=== PATIENT | male | born 1940 | race Caucasian/White ===

== ENCOUNTER 2023-09-21 14:05 | Outpatient (CLI) | payer MEDICARE ==
[2023-09-21 15:05] LABS: EOSINOPHILS # (AUTO) 0.1 X10'3 (0-0.9)
[2023-09-21 15:07] LABS: BASOPHILS % (AUTO) 0.4 % (0-1); EOSINOPHILS % (AUTO) 1.9 % (0-6); HEMATOCRIT 47.4 % (42.0-52.0); HEMOGLOBIN 15.9 g/dl (14.0-17.9); LYMPHOCYTES # (AUTO) 0.8 X10'3 (1.1-4.8); LYMPHOCYTES % (AUTO) 12.8 % (21-51); MEAN CORPUSCULAR HEMOGLOBIN 31.9 PG (27.0-31.0); MEAN CORPUSCULAR HGB CONC 33.5 g/dL (33.0-36.5); MEAN CORPUSCULAR VOLUME 95.2 FL (78-98); MEAN PLATELET VOLUME 8.9 FL (7.4-10.4); MONOCYTES # (AUTO) 0.6 X10'3 (0-0.9); MONOCYTES % (AUTO) 9.9 % (2-12); NEUTROPHILS # (AUTO) 4.4 X10'3 (1.8-7.7); PLATELET COUNT 176 X10'3 (140-440); RED BLOOD COUNT 4.98 X10'6 (4.70-6.10); RED CELL DISTRIBUTION WIDTH 14.1 % (11.5-14.5); WHITE BLOOD COUNT 5.9 X10'3 (4.5-11.0)
[2023-09-21 15:23] LABS: APTT 37 SECONDS (22-32); INR 2.1 INR; PROTHROMBIN TIME 21.9 SECONDS (9.0-12.0)
[2023-09-21 15:24] LABS: ALBUMIN 3.7 G/DL (3.4-5.0); ANION GAP 8 (8-16); BLOOD UREA NITROGEN 24 MG/DL (7-18); BUN/CREATININE RATIO 21.4 (10.0-20.0); CALCIUM 9.3 MG/DL (8.5-10.1); CHLORIDE 104 MMOL/L (99-107); CHOL/HDL RATIO 2.7 (0.00-4.99); CHOLESTEROL 126 MG/DL (0-200); CREATININE 1.12 MG/DL (0.60-1.10); GLUCOSE 97 MG/DL (70-104); HDL CHOLESTEROL 46 MG/DL (35-60); LDL CHOLESTEROL 62 MG/DL (50-100); POTASSIUM 4.7 MMOL/L (3.5-5.1); SODIUM 139 MMOL/L (135-145); TRIGLYCERIDES 98 MG/DL (20-135); eGFR 63 ML/MIN
== END 2023-09-21 23:59 | disposition home or self-care (01) ==
LOC: LAB 14:05
PROVIDERS: ATTEND Internal Medicine Interventional Cardiology
DX: Z01.812 Encounter for preprocedural laboratory examination (principal); E78.5 Hyperlipidemia, unspecified; I10 Essential (primary) hypertension; Z79.01 Long term (current) use of anticoagulants
CPT/HCPCS: 80048; 80061; 85025; 85610; 85730

== ENCOUNTER 2023-09-24 09:59 | Day surgery (SDC) | payer MEDICARE ==
[2023-09-24] VITALS (11 sets, daily range): BP systolic 91–130; BP diastolic 50–81; PULSE 61–98; RESP 13–18; TEMP 97.7; O2SAT 95–99
[~2023-09-24] VITALS: Ht 177.8 cm; Wt 87.8 kg
[2023-09-24] MEDS ORDERED: LORazepam 0.5 MG tablet PO PRN (10:25)
[2023-09-24] MEDS ORDERED: diphenhydrAMINE 25mg capsule PO PRN (10:25)
[2023-09-24] MEDS ORDERED: normal saline 1,000 ML IV SCH (10:25)
[2023-09-24] MEDS ORDERED: WARF10TA45 PO (11:38)
[2023-09-24] MEDS ORDERED: CALC600T14 PO (11:38)
[2023-09-24] MEDS ORDERED: ENOX100D5 SQ (11:38)
[2023-09-24] MEDS ORDERED: FLUO-1 PO (11:38)
[2023-09-24] MEDS ORDERED: LEVO125T8 PO (11:38)
[2023-09-24] MEDS ORDERED: VIT1TAB.13 PO (11:38)
[2023-09-24] MEDS ORDERED: METF-900 PO (11:38)
[2023-09-24] MEDS ORDERED: MULT-1085 PO (11:38)
[2023-09-24] MEDS ORDERED: LISI40TA13 PO (11:38)
[2023-09-24] MEDS ORDERED: CHOL200080 PO (11:38)
[2023-09-24] MEDS ORDERED: FLO0.4C PO (11:38)
[2023-09-24] MEDS ORDERED: ATOR40TA72 PO (11:38)
[2023-09-24] MEDS ORDERED: heparin 1,000unit/ml 10ml vial 10 ML ONE ×2 (11:44→12:41)
[2023-09-24] MEDS ORDERED: midazolam 1 mg/ML 2ml injection ONE (11:44)
[2023-09-24] MEDS ORDERED: fentaNYL/PF 50MCG/1 ML 2ML syringe ONE (11:44)
[2023-09-24] MEDS ORDERED: LIDOcaine 1% (10mg/ml) 2ml vial ONE (11:44)
[2023-09-24] MEDS ORDERED: verapamil 2.5 mg/ml inj IV ONE (11:44)
[2023-09-24] MEDS ORDERED: iohexol 350MG/ML 100ml bottle IV ONE ×2 (11:45→12:46)
[2023-09-24] MEDS ORDERED: nitroGLYCERIN 500mcg/5mL D5W 5 ML IV ONE (11:46)
[2023-09-24] MEDS ORDERED: LIDOcaine 1% 30ml preserv. free vial ONE (12:22)
[2023-09-24] MEDS ORDERED: iohexol 300mg/ml 100ml inj. ONE (12:32)
[2023-09-24] MEDS ORDERED: clopidogrel 300mg tablet ONE (12:40)
[2023-09-24] MEDS ORDERED: HYDROcodone/acetaminophen 5mg/325mg tablet PO PRN (13:55)
[2023-09-24] MEDS ORDERED: ondansetron/PF 4mg/2ml inj IV PRN (13:55)
[2023-09-24] MEDS ORDERED: nitroGLYCERIN 0.4mg SUBLingual tab SL PRN (13:55)
[2023-09-24] MEDS ORDERED: proCHLORperazine 10 MG/2 ml inj IV PRN (13:55)
[2023-09-24] MEDS ORDERED: HYDROcodone/acetaminophen 10/325mg tab PO PRN (13:55)
[2023-09-24] MEDS ORDERED: OXAZEpam 15mg capsule PO PRN (13:55)
[2023-09-24 15:35] LABS: ISTAT HGB MIX 14.3 g/dl (14.0-17.9); ISTAT Hct MIX 42 %PCV (42-52); ISTAT O2 SATURATION MIX VENOUS 59 % (60-80); ISTAT SOURCE VEN
[2023-09-24 15:36] LABS: ISTAT HGB MIX 14.6 g/dl (14.0-17.9); ISTAT Hct MIX 43 %PCV (42-52); ISTAT O2 SATURATION MIX VENOUS 88 % (60-80); ISTAT SOURCE BLNK
== END 2023-09-24 18:15 | disposition home or self-care (01) ==
LOC: SSTAY O 09:59
PROVIDERS: ATTEND Student in an Organized Health Care Education/Training Program
DX: I35.0 Nonrheumatic aortic (valve) stenosis (principal); I10 Essential (primary) hypertension; E11.9 Type 2 diabetes mellitus without complications; E78.00 Pure hypercholesterolemia, unspecified; I20.9 Angina pectoris, unspecified; Z79.01 Long term (current) use of anticoagulants; Z86.711 Personal history of pulmonary embolism; Z79.84 Long term (current) use of oral hypoglycemic drugs; Z79.890 Hormone replacement therapy; Z79.899 Other long term (current) drug therapy
CPT/HCPCS: 82803; 82948; 85014; 93005; 93456; 99152; 99153; C1874; C9600; J1644; J2250; J3010; J3490; J7030; Q9967; C1725; C1751; C1760; C1894

== ENCOUNTER 2023-12-31 10:49 | Outpatient (CLI) | payer MEDICARE ==
[~2023-12-31 10:49] MED LIST: ATOR40TA72 PO; CALC600T14 PO; CHOL200080 PO; ENOX100D5 SQ; FLO0.4C PO; FLUO-1 PO; IODIXANOL 320 MG/ML INFUS..BTL 100ML IV ONE; LEVO125T8 PO; LISI40TA13 PO; METF-900 PO; MULT-1085 PO; VIT1TAB.13 PO; WARF10TA45 PO
[2023-12-31 11:23] LABS: BASOPHILS # (AUTO) 0.1 X10'3 (0-0.2); BASOPHILS % (AUTO) 1.3 % (0-1); EOSINOPHILS # (AUTO) 0.2 X10'3 (0-0.9); EOSINOPHILS % (AUTO) 3.4 % (0-6); HEMOGLOBIN 14.3 g/dl (14.0-17.9); LYMPHOCYTES # (AUTO) 0.8 X10'3 (1.1-4.8); LYMPHOCYTES % (AUTO) 17.1 % (21-51); MEAN CORPUSCULAR HGB CONC 32.5 g/dL (33.0-36.5); MEAN CORPUSCULAR VOLUME 95.5 FL (78-98); MEAN PLATELET VOLUME 8.5 FL (7.4-10.4); MONOCYTES # (AUTO) 0.4 X10'3 (0-0.9); MONOCYTES % (AUTO) 8.1 % (2-12); NEUTROPHILS # (AUTO) 3.5 X10'3 (1.8-7.7); NEUTROPHILS % (AUTO) 70.1 % (42-75); PLATELET COUNT 192 X10'3 (140-440); RED BLOOD COUNT 4.61 X10'6 (4.70-6.10); RED CELL DISTRIBUTION WIDTH 15.6 % (11.5-14.5); WHITE BLOOD COUNT 4.9 X10'3 (4.5-11.0)
[2023-12-31 11:35] LABS: APTT 31 SECONDS (22-32); INR 1.9 INR; PROTHROMBIN TIME 19.2 SECONDS (9.0-12.0)
[2023-12-31 12:19] LABS: ALANINE AMINOTRANSFERASE 40 U/L (12-78); ALBUMIN 3.9 G/DL (3.4-5.0); ALBUMIN/GLOBULIN RATIO 1.1 (1.1-1.5); ALKALINE PHOSPHATASE 63 IU/L (46-116); ANION GAP 8 (8-16); ASPARTATE AMINO TRANSFERASE 24 U/L (10-37); BILIRUBIN,TOTAL 0.7 MG/DL (0.1-1.0); BLOOD UREA NITROGEN 27 MG/DL (7-18); BUN/CREATININE RATIO 26.7 (10.0-20.0); CALCIUM 8.9 MG/DL (8.5-10.1); CHLORIDE 104 MMOL/L (99-107); CREATININE 1.01 MG/DL (0.60-1.10); GLUCOSE 109 MG/DL (70-104); POTASSIUM 4.6 MMOL/L (3.5-5.1); PRO BRAIN NATRIURETIC PEPTIDE 133 PG/ML (0-450); SODIUM 136 MMOL/L (135-145); TOTAL CARBON DIOXIDE 23.9 MMOL/L (24-32); TOTAL PROTEIN 7.5 G/DL (6.4-8.2); eGFR 71 ML/MIN
== END 2023-12-31 23:59 | disposition home or self-care (01) ==
LOC: RAD 10:49
PROVIDERS: ATTEND Internal Medicine Cardiovascular Disease
DX: K57.30 Diverticulosis of large intestine without perforation or abscess without bleeding (principal); J92.9 Pleural plaque without asbestos; I70.0 Atherosclerosis of aorta; I35.0 Nonrheumatic aortic (valve) stenosis; R06.02 Shortness of breath; I65.29 Occlusion and stenosis of unspecified carotid artery; N32.89 Other specified disorders of bladder; M43.8X6 Other specified deforming dorsopathies, lumbar region
CPT/HCPCS: 36415; 71046; 71275; 74174; 75572; 80053; 83880; 85025; 85610; 85730; Q9967